=== PATIENT | female | born 1955 | race African-American/Black ===

== ENCOUNTER 2018-03-23 17:00 | Emergency (ER) | payer MEDICAID ==
[~2018-03-23] VITALS: Ht 160 cm; Wt 85.0 kg
[2018-03-23 17:26] VITALS: BP 185/154
[2018-03-23] MEDS ORDERED: QUET100T33 PO (17:33)
[2018-03-23] MEDS ORDERED: PROPRANOLOL (17:33)
[2018-03-23] MEDS ORDERED: OMEP20TA2 PO (17:33)
== END 2018-03-23 22:38 | disposition home or self-care (01) ==
LOC: ER 17:00
DX: H60.593 Other noninfective acute otitis externa, bilateral (principal); C22.8 Malignant neoplasm of liver, primary, unspecified as to type; Z92.21 Personal history of antineoplastic chemotherapy; I10 Essential (primary) hypertension; F17.210 Nicotine dependence, cigarettes, uncomplicated
CPT/HCPCS: 99282